=== PATIENT | female | born 1995 | race Caucasian/White ===

== ENCOUNTER 2016-11-21 14:50 | Emergency (ER) | payer OTHER | END 2016-11-21 17:00 | disposition home or self-care (01) | LOC: ER 14:50 | DX: K08.89 Other specified disorders of teeth and supporting structures (principal); F41.9 Anxiety disorder, unspecified; Z79.899 Other long term (current) drug therapy; Z79.3 Long term (current) use of hormonal contraceptives | CPT/HCPCS: 96372; 99282-25 ==